=== PATIENT | male | born 1965 | race Caucasian/White ===

== ENCOUNTER 2025-02-23 09:46 | Outpatient (CLI) | payer BC | END 2025-02-23 09:47 | disposition home or self-care (01) | LOC: CSHULT 09:46 | PROVIDERS: ATTEND Family Medicine | DX: R10.84 Generalized abdominal pain (principal); N28.89 Other specified disorders of kidney and ureter | CPT/HCPCS: 76700 ==

== ENCOUNTER 2025-03-02 07:06 | Outpatient (CLI) | payer BC | END 2025-03-02 07:07 | disposition home or self-care (01) | LOC: CSHCT 07:06 | PROVIDERS: ATTEND Family Medicine | DX: R10.9 Unspecified abdominal pain (principal) | CPT/HCPCS: 74170 ==